=== PATIENT | male | born 1965 | race Caucasian/White ===

== ENCOUNTER 2021-11-04 12:12 | Inpatient (IN) | payer BC ==
[~2021-11-04] VITALS: Ht 170.2 cm; Wt 90.2 kg
[2021-11-04] MEDS ORDERED: diphenhydrAMINE 50 mg/ml inj IM ONE (16:10)
[2021-11-04] MEDS ORDERED: LORazepam 2 mg/ml vial IM ONE (16:10)
[2021-11-04] MEDS ORDERED: haloperidol lactate 5mg/ml inj IM ONE (16:10)
[2021-11-04 16:28] LABS: BASOPHILS # (AUTO) 0.1 X10'3 (0-0.2); BASOPHILS % (AUTO) 1.1 % (0-1); EOSINOPHILS # (AUTO) 0.1 X10'3 (0-0.9); EOSINOPHILS % (AUTO) 1.1 % (0-6); HEMATOCRIT 46.6 % (42.0-52.0); HEMOGLOBIN 16.5 g/dl (14.0-17.9); LYMPHOCYTES # (AUTO) 2.6 X10'3 (1.1-4.8); LYMPHOCYTES % (AUTO) 30.2 % (21-51); MEAN CORPUSCULAR HEMOGLOBIN 35.6 PG (27.0-31.0); MEAN CORPUSCULAR HGB CONC 35.3 g/dL (33.0-36.5); MEAN CORPUSCULAR VOLUME 100.7 FL (78-98); MEAN PLATELET VOLUME 7.7 FL (7.4-10.4); MONOCYTES # (AUTO) 1.2 X10'3 (0-0.9); MONOCYTES % (AUTO) 13.4 % (2-12); NEUTROPHILS # (AUTO) 4.7 X10'3 (1.8-7.7); NEUTROPHILS % (AUTO) 54.2 % (42-75); PLATELET COUNT 207 X10'3 (140-440); RED BLOOD COUNT 4.62 X10'6 (4.70-6.10); WHITE BLOOD COUNT 8.6 X10'3 (4.5-11.0)
--- NOTE | 2021-11-04 16:29 | NUR ---
pt brother perico desir at bedside. would like to be contacted when pt sees psychitrist to help plan of care. [phone] is brothers cell number. pt gave permission to give brother updates. per brother and pt, no updates or information to be given to pt Rachele desir
[2021-11-04 16:41] LABS: ALANINE AMINOTRANSFERASE 81 U/L (12-78); ALBUMIN 3.9 G/DL (3.4-5.0); ALBUMIN/GLOBULIN RATIO 0.9 (1.1-1.5); ALKALINE PHOSPHATASE 62 IU/L (46-116); ANION GAP 16 (8-16); ASPARTATE AMINO TRANSFERASE 86 U/L (10-37); BILIRUBIN,TOTAL 1.5 MG/DL (0.1-1.0); BLOOD UREA NITROGEN 13 MG/DL (7-18); BUN/CREATININE RATIO 11.1 (5.4-32.0); CALCIUM 9.6 MG/DL (8.5-10.1); CHLORIDE 106 MMOL/L (99-107); CREATININE 1.17 MG/DL (0.60-1.10); GLUCOSE 107 MG/DL (70-104); POTASSIUM 3.5 MMOL/L (3.5-5.1); SODIUM 144 MMOL/L (135-145); TOTAL CARBON DIOXIDE 22.3 MMOL/L (24-32); TOTAL PROTEIN 8.1 G/DL (6.4-8.2); eGFR 64 ML/MIN
[2021-11-04 16:53] LABS: ETHANOL < 0.010 GM/DL (0.0-0.010)
--- NOTE | 2021-11-04 20:56 | NUR ---
The patient moved to bed 23 from the main ER. He did give a urine sample and is resting on his bed currently.
[2021-11-04 21:22] LABS: CLARITY,URINE SLIGHTLY CLOUDY (Clear); GLUCOSE, URINE NEGATIVE (Neg); KETONES,URINE 15 mg/dl (Neg); LEUKOCYTE ESTERASE ,URINE TRACE (Neg); NITRITES, URINE NEGATIVE (Neg); OCCULT BLOOD,URINE NEGATIVE (Neg); PROTEIN,URINE 30 mg/dl (Neg)
[2021-11-04 21:23] LABS: URINE AMPHETAMINE SCREEN NEGATIVE (Neg); URINE BARBITUATE SCREEN NEGATIVE (Neg); URINE BENZODIAZEPINES SCREEN NEGATIVE (Neg); URINE CANNABINOID SCREEN POSITIVE (Neg); URINE COCAINE SCREEN NEGATIVE (Neg); URINE METHADONE SCREEN NEGATIVE (Neg); URINE OPIATE SCREEN NEGATIVE (Neg); URINE PHENCYCLIDINE SCREEN NEGATIVE (Neg)
[2021-11-04 21:30] LABS: COLOR,URINE AMBER (Yellow); UA COLLECTION TYPE CLN CATCH MIDSTREAM
--- NOTE | 2021-11-04 21:33 | NUR ---
The patient appears to be sleeping
[2021-11-04 21:35] LABS: MUCUS STRANDS MANY /LPF (Neg); SQUAMOUS EPITHELIAL CELL,UR FEW /LPF (FEW)
[2021-11-04 21:37] LABS: BACTERIA,URINE FEW /HPF (Neg); CAL OXALATE CRYSTALS 1+ /HPF (NEGATIVE); HYALINE CASTS 0-3 /LPF (NEGATIVE); RBC,URINE 0-2 /HPF (0-2); WBC,URINE 0-4 /HPF (0-4)
--- NOTE | 2021-11-04 23:16 | NUR ---
The patient appears to be sleeping
--- NOTE | 2021-11-05 01:03 | NUR ---
The patient appears to be sleeping
--- NOTE | 2021-11-05 03:00 | NUR ---
The patient appears to be sleeping
--- NOTE | 2021-11-05 05:04 | NUR ---
The patient appears to be sleeping
--- NOTE | 2021-11-05 07:00 | NUR ---
pt is sleeping no issues at this time
--- NOTE | 2021-11-05 09:00 | NUR ---
pt is resting
--- NOTE | 2021-11-05 11:00 | NUR ---
pt is walking around. talking with staff. no issues
--- NOTE | 2021-11-05 13:00 | NUR ---
pt is sitting in his chair and singing.
[2021-11-05] MEDS ORDERED: NO HOME MEDS (13:44)
--- NOTE | 2021-11-05 15:00 | NUR ---
pt is sitting in his chair by his bed
--- NOTE | 2021-11-05 17:30 | NUR ---
family is allowed to visit pt daughters and brothers. is not allowed to visit or receive information
[2021-11-05] MEDS ORDERED: OLANZapine 2.5MG tablet PO STA (19:26)
[2021-11-05] MEDS ORDERED: LORazepam 1 MG tablet PO ONE (19:30)
--- NOTE | 2021-11-05 19:41 | NUR ---
The patient have been very hyperverbal and manic. He is constantly moving about the unit. He is labile in his mood. He was very irritable and argumentative during the evening assessment. Discussed presentation with PA and orders received for medications which the patient accepted. He has been accepted for admit to [facility] and he was made aware.
[2021-11-05] MEDS ORDERED: loperamide 2mg capsule PO PRN (21:05)
[2021-11-05] MEDS ORDERED: mag hydrox/Alum hydrox/simeth 30ml oral suspension PO PRN (21:05)
[2021-11-05] MEDS ORDERED: magnesium hydroxide 30ml (MOM) UD suspension PO PRN (21:05)
[2021-11-05] MEDS ORDERED: acetaminophen 325mg tablet PO PRN ×2 (21:05)
[2021-11-05 21:56] VITALS: BP 120/69
--- NOTE | 2021-11-05 22:17 | NUR ---
Admission Note: Jeevan Hung (Olaf) 56 y/o male, (prefers to be called Olaf) admitted to [facility] 11/05/2021 on 5150 for GD. Patient used to abuse alcohol and drugs but has been sober awhile per family report. Pt reportedly has Hx of schizophrenia and supposedly had psychotic break 4 days ago per brother.Patient originally found by brother in [facility]. The family was trying to receive help for the patient when he suddenly took off. Patient was then located in [place] and brought back to [place] by brother. Per ED report the patient was in a game and trying to reach the next level. The pt was presented to the ED and put on observation. The patient is hyperverbal, delusional, paranoid, tangental with flight of ideas. The pt is a poor historian and doesn't know why he was in [place] or [place] [facility] [place]. When answering questions the patient quickly rambles on and does not make sense. The patient reports being but is actually . Per the pts brother he would like to be contacted and involved in health care process.
[2021-11-06 07:36] LABS: HEMOGLOBIN A1C 5.4 % (4.5-6.2)
[2021-11-06 07:40] LABS: CHOL/HDL RATIO 3.3 (0.00-4.99); CHOLESTEROL 112 MG/DL (0-200); CREATININE 0.78 MG/DL (0.60-1.10); HDL CHOLESTEROL 34 MG/DL (35-60); LDL CHOLESTEROL 68 MG/DL (50-100); TRIGLYCERIDES 53 MG/DL (20-135); eGFR > 90 ML/MIN
[2021-11-06 08:00] VITALS: BP 140/76
--- NOTE | 2021-11-06 14:34 | NUR ---
Info from Brother: Pts brother Yossi gave this info. Pt behaves like he has "Multiple personalities". Jeevan feels People are to get him. He has a esteves in his mind. Pt has been diagnosed with Schizoaffective. Pt had a breakdown in 2019 and was hospitalized twice that year. Pt talks about how he feels he is in a different dimension or feels like he is not in a real realm. Pt wrote a book full of information about him. Pts mother had Bipolar and was hospitalized while they were younger.
--- NOTE | 2021-11-06 16:39 | NUR ---
Nursing Progress Note: Problem: 56 y/o male, (prefers to be called Olaf) admitted to [facility] 11/05/2021 on 5150 for GD. Patient used to abuse alcohol and drugs, but has been sober awhile per family report. Pt reportedly has Hx of schizophrenia and supposedly had psychotic break 4 days ago per brother. Patient originally found by brother in [facility]. The family was trying to receive help for the patient when he suddenly took off. Intervention: Medication given as ordered. Provided with a safe and therapeutic environment, clear communication, active listening and positive encouragement. Medication administration as per ordered with no adverse effect. Q15 min checks. Response: Patient was up early this morning. He appears to be a little manic right now. Patient is always busy. He moves freely about the unit and the rec room all day. Patient is somewhat intrusive, but not bothersome. His mood is elevated and he seems quite happy. Patient does not want to talk about his issues leading him to be admitted here. He has no scheduled meds, and knows he has PRNs if needed. Patient is very sociable and has to meet everybody on the unit. Hes sort of like a little boy. Patient can be irritable when he doesnt get his way. Plan: Patient continues to require crisis interruption and stabilization with medication management and monitoring in a safe and therapeutic environment
[2021-11-06 19:31] VITALS: BP 117/78
[2021-11-06] MEDS: lithium carbonate 150mg capsule PO SCH (21:03)
[2021-11-06] MEDS: temazepam 15mg capsule PO PRN (23:13)
--- NOTE | 2021-11-07 03:38 | NUR ---
Nursing Progress Note: Problem: 56 y/o male, (prefers to be called Olaf) admitted to [facility] 11/05/2021 on 5150 for GD. Patient used to abuse alcohol and drugs, but has been sober awhile per family report. Pt reportedly has Hx of schizophrenia and supposedly had psychotic break 4 days ago per brother. Patient originally found by brother in [facility]. The family was trying to receive help for the patient when he suddenly took off. Intervention: Medication given as ordered. Provided with a safe and therapeutic environment, clear communication, active listening and positive encouragement. Medication administration as per ordered with no adverse effect. Q15 min checks. Response: Patient dancing around in hallway greeting people at shift change. The pt is polite and appropriate. Hypo manic this evening. The patient reports not wanting to go to group because, "I don't want to hurt any ones feelings because I know things. These people and me are different, I know things." Patient continued to be hyperverbal but appropriate throughout the evening. Ate snack in the community room. patient took new order of Cucumber. Patient asked for room change after roommate frightened him by talking to self. Patient calmed down and hung out in rec room until room mate eventually fell asleep. Patient then tried to go to bed but came back out reporting that he couldn't sleep and that he felt like he had a million gallons of energy. Patient was given headphones and charge nurse called provider an order of Restoril was given . Patient then reported that he felt he was having a paradoxical effect. Patient did not want second dose. Pt then put on headphone and danced in the hallway for a long time. Plan: Patient continues to require crisis interruption and stabilization with medication management and monitoring in a safe and therapeutic environment
[2021-11-07 07:39] VITALS: BP 158/82
--- NOTE | 2021-11-07 15:38 | NUR ---
Met with Olaf's brother, Yossi, and his son Jan, today after they visited Olaf. They both had concerns about Olaf getting discharged when his 5150 expires. They would like to be involved with his discharge plan. Yossi-ph# [phone] Jan-ph# [phone] KASSIDY Sung
--- NOTE | 2021-11-07 15:44 | NUR ---
Olaf is a 56 y/o male who was placed on 5150 for grave disability. He was found running around [facility] in his boxers. Family had brought him to [facility] ED for a mental health evaluation. He took off and was dressed only in boxers to try to disguise himself as a homeless person. Per family, Olaf has been under a lot of stress over the last couple months with court with his whom he has a restraining order against. Olaf is conflicted about getting a divorce due to his [employer] beliefs. He recently took off to [facility] where his brother, Yossi, had to drive there to retrieve him. He told his brother he felt like he was in a "game". Per family report, Olaf had been hearing family members talk to him. He has been acting erractic and asked his kids to come to the house and then yelled at them and trashed his house. He has been spending money excessively and family is concerned he has not paid his bills. Per family, Olaf was diagnosed with Schizoaffective Disorder two years ago, however, did not comply with treatment medications. Olaf's brother, Yossi, reported Olaf recently went to [facility] and did testing. They are not sure of the results. Olaf does see a therapist, Smith Forbes, PhD, [facility], who recommended he go to [facility]. Yossi reported Olaf was self-medicating with alcohol and marijuana. He quit drinking about two months ago. Olaf has 7 kids, 5 of them live in the [facility]. He also did own 7 businesses in the past. Olaf was labile and hyper-verbal when assembly instructions writer met with him.He stated, "I flipped out" when asked why he is here. He reported a lot of stress and feeling conflicted about his divorce. He really would like to leave and feels like he doesn't belong here at [facility]. Family would like to be involved with discharge planning. They are quite supportive. KASSIDY Sung Addendum: 11/07/21 at 1545 by Halle STOKES Amended: Links added.
--- NOTE | 2021-11-07 17:31 | NUR ---
Nursing Progress Note: Problem: 56 y/o male, (prefers to be called Olaf) admitted to [facility] 11/05/2021 on 5150 for GD. Patient used to abuse alcohol and drugs but has been sober awhile per family report. Pt reportedly has Hx of schizophrenia and supposedly had psychotic break 4 days ago per brother. Patient originally found by brother in [facility]. The family was trying to receive help for the patient when he suddenly took off. Intervention: Medication given as ordered. Provided with a safe and therapeutic environment, clear communication, active listening and positive encouragement. Medication administration as per ordered with no adverse effect. Response: Patient was up before start of shift. Hes still somewhat manic with elevated mood. Patient continues to be all over the unit talking to everybody. He has no scheduled meds during the day, and has not requested any PRNs. Patients brother visited today and brought the patient some new clothes. He is showing insight into his illness, I know I have Bipolar, even if it has not been diagnosed. I also realize Im manic right now. The longer he speaks, the more he goes off the rails. He seems to be happy here, and has not asked to leave. Plan: Patient continues to require crisis interruption and stabilization with medication management and monitoring in a safe and therapeutic environment
[2021-11-07] MEDS: lithium carbonate 150mg capsule PO SCH (20:27)
[2021-11-07] MEDS: temazepam 15mg capsule PO PRN (20:27)
[2021-11-07 20:51] VITALS: BP 130/75
--- NOTE | 2021-11-07 23:39 | NUR ---
Nursing Progress Note: Jeevan Problem: 56 y/o male, (prefers to be called Olaf) admitted to [facility] 11/05/2021 on 5150 for GD. Patient used to abuse alcohol and drugs but has been sober awhile per family report. Pt reportedly has Hx of schizophrenia and supposedly had psychotic break 4 days ago per brother. Patient originally found by brother in [facility]. The family was trying to receive help for the patient when he suddenly took off. Intervention: Medication given as ordered. Provided with a safe and therapeutic environment, clear communication, active listening and positive encouragement. Medication administration as per ordered with no adverse effect. Response: Patient up pacing the unit at change of shift. Pt hypomanic, cooperative with assessment. He denies MH symptoms but states she has had this problem for years and he was able to hide it very well. He states I got caught and wrote a book about it. Pt observed in rec room listening to headphones. HS medications taken without issue. Pt had periods of lying in bed and pacing the unit with headphones. Plan: Patient continues to require crisis interruption and stabilization with medication management and monitoring in a safe and therapeutic environment
--- NOTE | 2021-11-08 02:23 | NUR ---
Sleep Note: Pt up pacing the unit at 0145 wanting to be in the rec room. Told the pt the room was off limits, the pt wanted to sit in the hallway "for an hour and a half." The patient refused second dose of restoril stating "it will make me bounce off the guthrie."
[2021-11-08 07:29] VITALS: BP 124/74
--- NOTE | 2021-11-08 10:19 | NUR ---
Initial: Pt admit for bipolar disorder. Currently on a regular diet with slightly fluctuating PO intake that appears to be improving, initially refusing first two meals however with mostly 75-100% PO intake the following meals meeting estimated nutrient needs. Pt participates in snacks per resource development manager. LB 11/05 though no GI symptoms and PRN bowel care available. No nutrition diagnosis at this time. Will continue to follow. Recommendations: 1) Continue regular diet 2) Bowel care PRN 3) Weekly scaled weights Addendum: 11/08/21 at [address] Amended: Links added.
--- NOTE | 2021-11-08 17:34 | NUR ---
Nursing Progress Note: Problem: 56 y/o male, (prefers to be called Olaf) admitted to [facility] 11/05/2021 on 5150 for GD. Patient used to abuse alcohol and drugs but has been sober awhile per family report. Pt reportedly has Hx of schizophrenia and supposedly had psychotic break 4 days ago per brother. Patient originally found by brother in [facility]. The family was trying to receive help for the patient when he suddenly took off. Intervention: Physical assessment and 1:1 interview done. Pt. provided with a safe and therapeutic environment, clear communication, active listening and positive encouragement. Medication administration given as ordered with no adverse effect. Response: Patient was up before start of shift and sitting in the hallway listening to music. Pt. states, I only need 7 hours of sleep, If I sleep more than that its not good. Pt. appears hypomanic, observed dancing in the hallway. During interview, pt. talked at length of his reason for admission, stating, I started seeing things that werent there, my brother told me I needed some help. Pt. denies all psych symptoms. Pt. states, I just want to get home, so I can wake up and play my tunes in the morning. Pt. feels like his medications are helping him and denies side effects. Plan: Patient continues to require crisis interruption and stabilization with medication management and monitoring in a safe and therapeutic environment.
[2021-11-08 20:00] VITALS: BP 134/62
[2021-11-08] MEDS: lithium carbonate 150mg capsule PO SCH (20:26)
[2021-11-08] MEDS: temazepam 15mg capsule PO PRN (20:26)
--- NOTE | 2021-11-09 00:54 | NUR ---
Nursing Progress Note: Jeevan Problem: 56 y/o male, (prefers to be called Olaf) admitted to [facility] 11/05/2021 on 5150 for GD. Patient used to abuse alcohol and drugs but has been sober awhile per family report. Pt reportedly has Hx of schizophrenia and supposedly had psychotic break 4 days ago per brother. Patient originally found by brother in [facility]. The family was trying to receive help for the patient when he suddenly took off. Intervention: Physical assessment and 1:1 interview done. Pt. provided with a safe and therapeutic environment, clear communication, active listening and positive encouragement. Medication administration given as ordered with no adverse effect. Response: Patient talking with Guillermo at change of shift. Pt was served his 5250 without any issues and repeated I just want to get out of here. Pt pacing the hallways with headphones on. Observed to be in the community room for snacks, HS medications given along with PRN restoril. 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 Pt pacing the unit with headphones on, refusing repeat dose of restoril. Plan: Patient continues to require crisis interruption and stabilization with medication management and monitoring in a safe and therapeutic environment.
[2021-11-09 07:53] VITALS: BP 118/84
--- NOTE | 2021-11-09 18:04 | NUR ---
Nursing Progress Note: Problem: 56 y/o male, (prefers to be called Olaf) admitted to [facility] 11/05/2021 on 5150 for GD. Patient used to abuse alcohol and drugs but has been sober awhile per family report. Pt reportedly has Hx of schizophrenia and supposedly had psychotic break 4 days ago per brother. Patient originally found by brother in [facility]. The family was trying to receive help for the patient when he suddenly took off. Intervention: Physical assessment and 1:1 interview done. Pt. provided with a safe and therapeutic environment, clear communication, active listening and positive encouragement. Medication administration given as ordered with no adverse effect. Response: Patient was up before start of shift and sitting in the hallway listening to music. Pt.s roommate complained to this RN stating, Hes up all night, in and out of the room. RN asked pt. about only getting 0.5hrs of sleep last night, pt. states, No, I slept great. Pt. appears more socially withdrawn today, listening to headphones and pacing the halls and looking out the window. 1:1 done at bedside, pt. denies all psych symptoms. Pt. states, Im hoping to get out of here soon and get on with my life. Plan: Patient continues to require crisis interruption and stabilization with medication management and monitoring in a safe and therapeutic environment.
[2021-11-09 20:00] VITALS: BP 138/75
[2021-11-09] MEDS: traZODone 50mg tablet PO SCH (20:47)
[2021-11-09] MEDS: lithium carbonate 150mg capsule PO SCH (20:48)
--- NOTE | 2021-11-10 01:12 | NUR ---
Nursing Progress Note: Jeevan Problem: 56 y/o male, (prefers to be called Olaf) admitted to [facility] 11/05/2021 on 5150 for GD. Patient used to abuse alcohol and drugs but has been sober awhile per family report. Pt reportedly has Hx of schizophrenia and supposedly had psychotic break 4 days ago per brother. Patient originally found by brother in [facility]. The family was trying to receive help for the patient when he suddenly took off. Intervention: Physical assessment and 1:1 interview done. Pt. provided with a safe and therapeutic environment, clear communication, active listening and positive encouragement. Medication administration given as ordered with no adverse effect. Response: Patient was quiet this evening keeping to himself in the community room, watching TV. Pt states he is doing well and is looking forward to getting a good nights sleep. Pt denies MH symptoms. Pt up in the community room for snacks and took HS medications including PRN trazadone. Pt watched TV until bedtime and as of this writing the pt is sleeping in his room. Plan: Patient continues to require crisis interruption and stabilization with medication management and monitoring in a safe and therapeutic environment.
[2021-11-10 08:00] VITALS: BP 107/55
--- NOTE | 2021-11-10 17:46 | NUR ---
Nursing Progress Note: Jeevan Babin Problem: Patient admitted on 5150 for GD. Patient used to abuse alcohol and drugs but has been sober a while per family report. Pt reportedly has Hx of schizophrenia and supposedly had psychotic break 4 days ago per brother. Patient originally found by brother in [facility]. The family was trying to receive help for the patient when he suddenly took off. Intervention: Provided with a safe and therapeutic environment, clear communication, active listening and positive encouragement. Response: Patient is resting quietly in bed at the start of the shift. Cooperative with assessment. No medication is scheduled this shift and no PRNs are required. Patient concerns himself over other patient needs and can be intrusive when trying to help. He is easily redirected and is pleasant/ polite. Appears restless at times. He paces the unit and can be hyper verbal. Patient denies any mental health symptoms at this time. Plan: Patient continues to require crisis interruption and stabilization with medication management and monitoring in a safe and therapeutic environment.
[2021-11-10] MEDS: lithium carbonate 150mg capsule PO SCH (20:13)
[2021-11-10] MEDS: traZODone 50mg tablet PO SCH (20:13)
[2021-11-10 20:32] VITALS: BP 139/71
--- NOTE | 2021-11-11 00:45 | NUR ---
Nursing note Problem: The patient was admitted on a 5150 for grave disability after he had became acutely manic and could not care for himself. He was found by family running naked downtown and taken to the ER. He was psychotic, manic and clearly unable to care for himself. Interventions One to one with the patient to assess for severity of manic symptoms. Medication education and assessed for side effects to medications. Physical assessment completed. He is on q 15 minute safety checks. Assessed for psychotic symptom. Response: The patient was cooperative with the evening assessment but his replies were circumstantial at times. He described his mood as "happy" and he denies that he is having thoughts to harm himself or anyone else. He denies that he is having psychotic symptoms and none were evident during the evening assessment. He stated that is racing thoughts are less than on admit but then went on to state that he had "extra powerful thoughts" He has been up on the unit and social with others but not intrusive" He reports that his sleep has improved. He described his ability to focus "Way better" Plan: Continue current treatment and redirect patient from any inappropriate behaviors as needed.
[2021-11-11 08:02] VITALS: BP 111/68
--- NOTE | 2021-11-11 16:33 | NUR ---
Nursing Progress Note: Jeevan Babin Problem: Patient admitted on 5150 for GD. Patient used to abuse alcohol and drugs but has been sober a while per family report. Pt reportedly has Hx of schizophrenia and supposedly had psychotic break 4 days ago per brother. Patient originally found by brother in [facility]. The family was trying to receive help for the patient when he suddenly took off. Intervention: Provided with a safe and therapeutic environment, clear communication, active listening and positive encouragement. Response: Patient is resting quietly in bed at the start of the shift. Cooperative with assessment. No medications are scheduled this shift. Patient is pleasant and cooperative. He appears somewhat elevated/ animated while socializing with staff and peers. Denies all mental health symptoms at this time. Plan: Patient continues to require crisis interruption and stabilization with medication management and monitoring in a safe and therapeutic environment.
[2021-11-11] MEDS ORDERED: traZODone 50mg tablet PO PRN (18:10)
[2021-11-11 19:21] VITALS: BP 109/59
[2021-11-11] MEDS: lithium carbonate 150mg capsule PO SCH (21:01)
--- NOTE | 2021-11-12 02:07 | NUR ---
Nursing Progress Note: Jeevan Babin Problem: Patient admitted on 5150 for GD. Patient used to abuse alcohol and drugs but has been sober a while per family report. Pt reportedly has Hx of schizophrenia and supposedly had psychotic break 4 days ago per brother. Patient originally found by brother in [facility]. The family was trying to receive help for the patient when he suddenly took off. Intervention: Provided with a safe and therapeutic environment, clear communication, active listening and positive encouragement. Response: Pt was watching tv w/peers at change of shift. Pt states he is feeling better now and that he plans to go home tomorrow because his children are staying at his house. Pt does not have a viable plan to return home yet. Pt reports sleep continues to be interrupted and is aware that trazodone is available as a prn but he doesn't want to take it. Pt had snack and took HS meds before going to bed. Pt woke during the night and sat outside his room writing for a short time before going back to bed. Plan: Patient continues to require crisis interruption and stabilization with medication management and monitoring in a safe and therapeutic environment. Addendum: 11/12/21 at 0436 by Lianna Chacko RN pt woke approx 2-3 times during the evening and walked out from his room and then returned. Pt declined trazodone prn offered.
[2021-11-12 07:39] VITALS: BP 111/61
--- NOTE | 2021-11-12 14:31 | NUR ---
DISCHARGE PLAN Olaf will be discharging home today. He will follow up with [facility] and with his psychologist, Migue Forbes, PhD. His son, Savage, will pick him up upon discharge. Savage is looking into some longer term treatment facilities and Olaf reported he is agreeable to this. KASSIDY Sung
[2021-11-12] MEDS ORDERED: TRAZ-251 PO (15:17)
[2021-11-12] MEDS ORDERED: LIT300C PO (15:17)
--- NOTE | 2021-11-12 16:23 | NUR ---
DIRECTOR UNDERWRITER SALES NOTE Patient was discharged from unit at 1540. Pt was picked up by his son Savage and transported home. Pt left with all personal belongings Discharge instructions were reviewed with patient and he verbalized understanding. Pt will follow up with his PCP [facility] and with his psychologist, Migue Forbes, PhD. Pt is A&O x4.
== END 2021-11-12 15:40 | disposition home or self-care (01) | DRG 885 ==
LOC: EEVIPCON 12:13 → ER 12:13 → ED HOLD 11-05 19:31 → ADULT MH 11-05 21:37
PROVIDERS: ADMIT Psychiatry & Neurology Psychiatry; ATTEND Psychiatry & Neurology Psychiatry
DX: F31.2 Bipolar disorder, current episode manic severe with psychotic features (principal); E78.5 Hyperlipidemia, unspecified; Z20.822 Contact with and (suspected) exposure to COVID-19; I10 Essential (primary) hypertension; F17.200 Nicotine dependence, unspecified, uncomplicated; F12.90 Cannabis use, unspecified, uncomplicated
CPT/HCPCS: 36415; 80053; 80061; 80305; 80320; 81001; 82565; 83036; 84443; 85025; 86592; 87081; 96372; 99284; 99285; J1200; J1630; J2060

== ENCOUNTER 2022-01-15 20:44 | Emergency (ER) | payer BC ==
[~2022-01-15] VITALS: Ht 175.3 cm; Wt 80.0 kg
[~2022-01-15 20:44] MED LIST: LIT300C PO; NO HOME MEDS; TRAZ-251 PO
[2022-01-15 21:10] VITALS: BP 159/91
== END 2022-01-15 21:40 | disposition home or self-care (01) ==
LOC: ER 20:45
DX: S30.811A Abrasion of abdominal wall, initial encounter (principal); V49.9XXA Car occupant (driver) (passenger) injured in unspecified traffic accident, initial encounter; Y93.89 Activity, other specified; Y92.89 Other specified places as the place of occurrence of the external cause; Y99.8 Other external cause status
CPT/HCPCS: 82948; 99283